=== PATIENT | female | born 1955 | race Caucasian/White ===

== ENCOUNTER 2016-11-28 05:36 | Emergency (ER) | payer OTHER ==
[~2016-11-28] VITALS: Ht 157.5 cm; Wt 59.8 kg
[~2016-11-28 05:36] MED LIST: ADULT LOW DOSE81 M1 PO; METOPROLOL SUCC25 MG PO
[2016-11-28 06:44] LABS: EOSINOPHIL (%) 3.9 % (0-5); EOSINOPHIL COUNT 0.3 K/uL (0-0.3); HEMATOCRIT 41.3 % (36.0-46.0); IMMATURE GRANULOCYTE (%) 0.3 % (0.0-0.7); IMMATURE GRANULOCYTE COUNT 0.2 K/uL; LYMPHOCYTE COUNT 2.3 K/uL (1.0-2.8); MCH 29.9 PG (29.0-34.0); MCHC 34.4 G/DL (30.0-36.0); MCV 86.9 FL (83-99); MEAN PLAT.VOLUME 9.2 uM^3 (9.5-12.4); MONOCYTE (%) 6.4 % (3-12); MONOCYTE COUNT 0.5 K/uL (0-0.8); NEUTROPHIL (%) 59.9 % (45-76); NEUTROPHIL COUNT 4.8 K/uL (1.8-6.4); PLATELET COUNT 353 K/uL (156-360); RBC DIS.WIDTH-CV 12.2 % (11.8-14.6); RBC DIS.WIDTH-SD 37.8 % (39-53); RED BLOOD COUNT 4.75 M/uL (3.80-5.20); WHITE BLOOD COUNT 7.9 K/uL (4.1-10.2)
[2016-11-28 07:19] LABS: ANION GAP 5 MEQ/L (2-14); CHLORIDE 104 MEQ/L (99-109); GFR ESTIMATE (CALCULATED) > 59 mL/min/; GLUCOSE 85 mg/dL (70-99); SAMPLE HEMOLYSIS CHECK 0; SAMPLE ICTERIC CHECK 0; SAMPLE LIPEMIA CHECK 0; SODIUM 138 MEQ/L (136-147); UREA NITROGEN (BUN) 8 mg/dL (9-23)
[2016-11-28] MEDS ORDERED: ANTIVERT25 MG PO (09:21)
[2016-11-28 09:28] VITALS: BP 116/71
== END 2016-11-28 09:34 | disposition home or self-care (01) ==
LOC: EME 05:36
PROVIDERS: Emergency Medicine
DX: R42 Dizziness and giddiness (principal); F17.200 Nicotine dependence, unspecified, uncomplicated; E78.5 Hyperlipidemia, unspecified; Z79.82 Long term (current) use of aspirin
CPT/HCPCS: 70450; 80048; 85025; 93005; 99281; 99285; J2405; J7030